=== PATIENT | male | born 1960 | race Caucasian/White ===

== ENCOUNTER 2018-04-09 14:30 | Outpatient (CLI) | payer OTHER | END 2018-04-09 14:31 | disposition home or self-care (01) | LOC: BICRAD 14:30 | PROVIDERS: ATTEND Family Medicine | DX: M25.562 Pain in left knee (principal) ==

== ENCOUNTER 2019-01-22 08:34 | Observation (INO) | payer OTHER ==
[2019-01-22 09:29] LABS: #Basophils 0.1 thou/uL (0.0-0.2); #Eosinphils 0.1 thou/uL (0.0-0.7); #Lymphocytes 1.3 thou/uL (1.20-3.40); #Monocytes 0.5 thou/uL (0.11-0.59); #Neutrophils 6.7 thou/uL (1.40-6.50); %Basophils 0.9 % (0.0-1.0); %Eosinophils 0.8 % (0.0-10.0); %Lymphocytes 14.8 % (21.0-51.0); %Monocytes 6.1 % (0.0-10.0); %Neutrophils 77.5 % (42.0-75.0); Hemoglobin 16.7 g/dL (14.0-18.0); Mean Corpuscular HGB CONC 33.4 g/dL (32.0-36.0); Mean Corpuscular Hemoglobin 32.2 pg (27.0-31.0); Mean Corpuscular Volume 96.3 fL (78.0-98.0); Mean Platelet Volume 7.6 fL (7.4-10.4); Platelet Count 213 thou/uL (130-400); RBC Distribution Width 11.7 % (11.5-14.5); Red Blood Cell (RBC) Count 5.17 mill/uL (4.70-6.10); White Blood Cell (WBC) Count 8.7 thou/uL (4.8-10.8)
[2019-01-22 09:54] LABS: ALT (SGPT) 15 U/L (8-55); AST (SGOT) 16 U/L (5-34); Albumin 4.5 g/dL (3.5-5.0); Alkaline Phosphatase 90 U/L (40-150); Anion Gap 16 mmol/L (10-20); BUN (Urea Nitrogen) 19 mg/dL (8.4-25.7); Bilirubin, Total 0.9 mg/dL (0.2-1.2); Calc. Creatinine Clearance 0 mL/min (70-130); Calcium 9.7 mg/dL (7.8-10.44); Carbon Dioxide 26 mmol/L (22-29); Chloride 103 mmol/L (98-107); Estimated GFR-MDRD 87; Globulin 2.8 g/dL (2.4-3.5); Glucose 78 mg/dL (70-105); Potassium 3.6 mmol/L (3.5-5.1); Protein, Total 7.3 g/dL (6.0-8.3); Sodium 141 mmol/L (136-145)
[2019-01-22] MEDS ORDERED: Aspirin 325 MG TAB ONE (12:23)
[2019-01-22 15:19] LABS: Troponin I Less than 0.010 ng/mL (< 0.028)
[2019-01-22] MEDS ORDERED: Acetaminophen 325 MG TAB PO PRN (16:56)
[2019-01-22] MEDS ORDERED: Zolpidem Tartrate 5 MG TAB PO PRN (16:56)
[2019-01-22] MEDS ORDERED: Ondansetron ODT 4 MG TAB PO PRN (16:56)
[2019-01-22] MEDS ORDERED: Enoxaparin Sodium 40 MG/0.4 ML SYRINGE SC SCH (17:00)
[2019-01-22 18:09] LABS: Troponin I Less than 0.010 ng/mL (< 0.028)
[2019-01-22] MEDS ORDERED: Rosuvastatin 10 MG TAB PO SCH (21:00)
--- NOTE | 2019-01-23 00:16 | HP ---
HISTORY OF PRESENT ILLNESS: The patient is a 58-year-old white male with previous history of atherosclerotic coronary artery disease, who presented to the emergency room with left chest pain. He noted the chest pain for approximately 24 hours, mainly to the left chest. He did not note any radiation of pain to his neck or to his arm. States the pain has been progressive and little bit more severe. He was seen and evaluated in the emergency room, treated with aspirin, now the chest pain did relieve. He has a previous history of an angioplasty without stenting done approximately 16 years ago. He has not noted any further cardiac issues. He now resting comfortably. He did not note any productive coughing. He did have some nausea and vomiting with this chest discomfort. 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 He is maintained on aspirin and cholesterol-lowering medication. Otherwise, no other medical complaints are noted. Now, he is resting comfortably. ALLERGIES: HE IS ALLERGIC TO TRAMADOL. CURRENT MEDICATIONS: 1. Rosuvastatin 40 mg one tablet daily. 2. Daypro 600 mg b.i.d. 3. Pantoprazole 40 mg daily. PAST MEDICAL HISTORY: Significant for the above noted angioplasty. He also has a history of primary skin cancer. PAST SURGICAL HISTORY: Positive for left knee surgery. SOCIAL AND PERSONAL HISTORY: He still smokes tobacco to one pack a day. He drinks alcohol socially. FAMILY HISTORY: Noncontributory. REVIEW OF SYSTEMS: : Negative. CARDIOVASCULAR: Positive as above. RESPIRATORY: Negative. GI: Positive for some nausea and vomiting yesterday. No diarrhea. NEUROLOGIC: Otherwise negative. PHYSICAL EXAMINATION: VITAL SIGNS: BP 132/78, pulse 70, respirations 16, O2 saturation 98% on room air. GENERAL: He is alert and active, in no distress. HEENT: Sclerae and conjunctivae clear. NECK: Supple. Full range of motion. No masses. LUNGS: Clear. HEART: Reveals a regular rate and rhythm. No murmurs, gallops, or rubs. ABDOMEN: Soft and nontender. Bowel sounds are present and active. No hepatosplenomegaly noted. There is no rebound or guarding noted at this time. EXTREMITIES: No clubbing, edema, or cyanosis noted. LABORATORY DATA: His white blood count is 8.7, hemoglobin 16.7, hematocrit 49.8. Sodium 141, potassium 3.6, chloride 103, CO2 of 26, BUN 19, creatinine 0.9. Troponins x2 are negative. EKG reveals normal sinus rhythm. IMPRESSION: This is a 58-year-old male with previous history of atherosclerotic coronary artery disease, now with left upper chest pain. PLAN: The patient will be placed in observation. Stress test will be ordered. I have started antiplatelet activity with increased dose of aspirin 325 mg daily. The patient understands the need for evaluation and treatment. Job ID: [id number]
[2019-01-23] MEDS ORDERED: Aspirin 325 mg Enteric Coated Tablet PO SCH (09:00)
--- NOTE | 2019-01-23 15:34 | PRG ---
DATE OF SERVICE: 01/23/2019 SUBJECTIVE: Mr. Flores has had no further chest pain through the night. He is feeling better. He is currently involved in a stress test. His results are not back yet. OBJECTIVE: VITAL SIGNS: Temperature 98.5, BP 116/77. LUNGS: Clear. HEART: Reveals no murmur. IMPRESSION: Chest pain. PLAN: Await results of stress test. Job ID: [id number]
[2019-01-23 16:35] VITALS: BP 131/79; TEMP 97.8
--- NOTE | 2019-01-23 16:50 | NM ---
Radionucleotide stress and rest myocardial perfusion scan with CT attenuation correction and SPECT im aging Left ventricular wall motion evaluation and ejection fraction. HISTORY: Chest pain. Findings: Chas protocol. Total test time 7:45. Maximum heart rate 142 bpm. There is homogeneous uptake of radiotracer throughout the left ventricular myocardium. No focal perfu jeffry defect or reversibility. QGS analysis of gated SPECT images shows small focal area of dyskinesis involving the distal lateral wall. Ejection fraction preserved at 71%. IMPRESSION: Normal myocardial perfusion scan. Normal LVEF
--- NOTE | 2019-01-25 12:53 | EKG ---
Test Reason : Blood Pressure : / mmHG Vent. Rate : 073 BPM Atrial Rate : 073 BPM P-R Int : 128 ms QRS Dur : 090 ms QT Int : 404 ms P-R-T Axes : 064 033 048 degrees QTc Int : 445 ms Normal sinus rhythm Possible Left atrial enlargement Borderline ECG Confirmed by CRIS CRAFT MD ([id number]), features editor DAVE SANTOS ([id number]) on 01/25/2019 12:52:52 PM Referred By: Confirmed By:CRIS CRAFT MD
== END 2019-01-23 17:28 | disposition home or self-care (01) ==
LOC: ERS 08:34 → ERHOLD 13:43 → 2SW 19:39
PROVIDERS: ADMIT Family Medicine; ATTEND Family Medicine
DX: R07.9 Chest pain, unspecified (principal); E78.00 Pure hypercholesterolemia, unspecified; E78.5 Hyperlipidemia, unspecified; F17.210 Nicotine dependence, cigarettes, uncomplicated; Z88.5 Allergy status to narcotic agent; Z79.899 Other long term (current) drug therapy; Z95.5 Presence of coronary angioplasty implant and graft
CPT/HCPCS: 36415; 78452; 80053; 84484; 85025; 93005; 93017; 96372; A9500; G0378; J1650

== ENCOUNTER 2019-07-23 10:30 | Outpatient (CLI) | payer OTHER ==
--- NOTE | 2019-07-23 12:56 | MRI ---
MRI RIGHT SHOULDER: 07/23/2019 PROVIDED CLINICAL HISTORY: Right shoulder pain. FINDINGS: The components of the rotator cuff appear intact. The longhead biceps tendon appears intact and is no rmally located. The glenoid labrum and glenohumeral articular cartilage are suboptimally evaluated in the absence of joint distention. There is signal alteration involving the superior labrum that may reflect a SLAP te ar. No focal glenohumeral articular cartilage defect is apparent. There is a heterogeneously hyperint ense appearance to the anterior band of the inferior glenohumeral ligament in its mid substance. Acromioclavicular joint osteoarthrosis is demonstrated without significant mass effect upon the subja cent supraspinatus. Regional marrow and muscular signal appear normal. IMPRESSION: 1. Findings possibly reflecting SLAP tear. 2. Abnormal appearance to the anterior band of the inferior glenohumeral ligament. This may reflect p artial tearing. This does not have the typical appearance for adhesive capsulitis. POS: OFF
== END 2019-07-23 10:31 | disposition home or self-care (01) ==
LOC: TBSIIMAG 10:30
PROVIDERS: ATTEND Orthopaedic Surgery
DX: M25.511 Pain in right shoulder (principal)

== ENCOUNTER 2024-04-18 07:58 | Outpatient (CLI) | payer OTHER ==
[2024-04-18] MEDS ORDERED: E-Z-HD 98% W/W 340GM BOT (x-ray ONLY) ONE (08:20)
[2024-04-18] MEDS ORDERED: Barium Sulfate 96% 176 GM BOT (xray ONLY) ONE (08:20)
== END 2024-04-18 07:59 | disposition home or self-care (01) ==
LOC: RAD 07:58
PROVIDERS: ATTEND Family Medicine
DX: R13.10 Dysphagia, unspecified (principal)
CPT/HCPCS: 74220